=== PATIENT | female | born 1950 | race Caucasian/White ===

== ENCOUNTER 2019-04-01 09:10 | Inpatient (IN) | payer MEDICARE, BC ==
[2019-03-25 16:07] LABS: BASOPHILS # (AUTO) 0.1 X10'3 (0-0.2); BASOPHILS % (AUTO) 0.9 % (0-1); EOSINOPHILS # (AUTO) 0.2 X10'3 (0-0.9); EOSINOPHILS % (AUTO) 2.3 % (0-6); LYMPHOCYTES # (AUTO) 1.4 X10'3 (1.1-4.8); LYMPHOCYTES % (AUTO) 19.8 % (21-51); MEAN CORPUSCULAR HEMOGLOBIN 31.6 PG (27.0-31.0); MEAN CORPUSCULAR HGB CONC 33.9 g/dL (33.0-36.5); MEAN CORPUSCULAR VOLUME 93.1 FL (78-98); MEAN PLATELET VOLUME 9.1 FL (7.4-10.4); MONOCYTES # (AUTO) 0.6 X10'3 (0-0.9); MONOCYTES % (AUTO) 8.4 % (2-12); NEUTROPHILS # (AUTO) 4.8 X10'3 (1.8-7.7); NEUTROPHILS % (AUTO) 68.6 % (42-75); PRE OP HEMATOCRIT 39.3 % (35.0-45.0); PRE OP HEMOGLOBIN 13.3 g/dL (12.0-16.0); PRE OP PLATELET COUNT 292 X10'3 (140-440); RED BLOOD COUNT 4.22 X10'6 (4.20-5.60); RED CELL DISTRIBUTION WIDTH 13.2 % (11.5-14.5)
[2019-03-25 16:21] LABS: PRE OP PROTIME 10.4 SECONDS (9.0-12.0)
[2019-03-25 16:24] LABS: ALBUMIN 3.6 G/DL (3.4-5.0); ALBUMIN/GLOBULIN RATIO 0.9 (1.1-1.5); ALKALINE PHOSPHATASE 157 IU/L (46-116); BLOOD UREA NITROGEN 19 MG/DL (7-18); BUN/CREATININE RATIO 19.4 (6.6-38.0); CALCIUM 9.2 MG/DL (8.5-10.1); CHLORIDE 104 MMOL/L (99-107); CREATININE 0.98 MG/DL (0.40-0.90); PRE OP ALT 26 U/L (30-65); PRE OP ANION GAP 6 (8-16); PRE OP AST 17 U/L (10-37); PRE OP BILIRUB, TOTAL 0.3 MG/DL (0.0-1.0); PRE OP GLUCOSE 94 MG/DL (70-104); PRE OP POTASSIUM 3.5 MMOL/L (3.4-5.1); PRE OP SODIUM 141 MMOL/L (135-145); TOTAL CARBON DIOXIDE 30.7 MMOL/L (24-32); TOTAL PROTEIN 7.7 G/DL (6.4-8.2); eGFR 56 ML/MIN
[2019-04-01] VITALS (17 sets, daily range): BP systolic 106–133; BP diastolic 58–80
[~2019-04-01] VITALS: Ht 170.2 cm; Wt 84.0 kg
[~2019-04-01 09:10] MED LIST: ASPI-128 PO; BUTA1TAB54 PO; HYDROmorphone 1 mg/ml syringe IV PRN; HYDROmorphone inj. 0.5 MG/0.5 ML DISP.SYRIN IV PRN; LACT1CAP65 PO; LOSA25TA41 PO; RIZA10TA27 PO; acetaminophen 325mg tablet PO ONE; acetaminophen 325mg tablet PO PRN; aspirin 325mg tablet PO SCH; bisacodyl 10mg suppository rectal RC PRN; celeCOXIB 100mg capsule PO ONE; clindamycin-Cleocin 900mg/D5W 50 ML IV ONE; diphenhydrAMINE 25mg capsule PO PRN; famotidine 20mg tablet PO ONE; gabapentin 300mg capsule PO ONE; magnesium hydroxide 30ml (MOM) UD suspension PO PRN; metoclopramide 5 mg/ml inj IV ONE; ondansetron/PF 4mg/2ml inj IV PRN; oxyCODONE SR 10mg (sust. release) tab -2 tabs (20mg) PO ONE; ringers solution, lacted 1,000 ML IV ONE; tranexamic acid inj. 1,000 MG in normal saline 100 ML IV ONE; vancomycin inj 1,500 MG in normal saline 300ml IV soln IV ONE
[2019-04-01] MEDS ORDERED: ketorolac trometh. 30mg/ml inj. ONE (10:39)
[2019-04-01] MEDS ORDERED: ROPIVAcaine 0.5% (5mg/ml) 30ml vial ONE ×2 (10:39→12:20)
[2019-04-01] MEDS ORDERED: cloNIDine hcl/PF 100mcg/ml inj ONE (10:39)
[2019-04-01] MEDS ORDERED: epiNEPHrine 1 mg/ml inj ONE (10:39)
[2019-04-01] MEDS ORDERED: vancomycin 1,000mg inj ONE (10:39)
[2019-04-01] MEDS ORDERED: tetracaine 1% (10mg/ml) pres. free inj. ONE (11:11)
[2019-04-01] MEDS ORDERED: MIDAZolam 5mg/5ml vial ONE (11:14)
[2019-04-01] MEDS ORDERED: fentaNYL/PF 50MCG/1 ML 2ML syringe ONE (11:14)
[2019-04-01] MEDS ORDERED: ringers solution, lacted 1,000 ML IV SCH (11:56)
[2019-04-01] MEDS ORDERED: proCHLORperazine 10 MG/2 ml inj IV PRN (12:00)
[2019-04-01] MEDS ORDERED: morphine 4 MG/ML inj SYRINge IV PRN ×2 (12:00)
[2019-04-01] MEDS ORDERED: meperidine/PF 25mg/ml syringe IV PRN ×3 (12:00)
[2019-04-01] MEDS ORDERED: ondansetron/PF 4mg/2ml inj IV PRN (12:00)
[2019-04-01] MEDS ORDERED: propofol inj 20 ML IV ONE (12:20)
--- NOTE | 2019-04-01 13:20 | NUR ---
Received from OR via BED , accompanied by Anesthesiologist DR ryder and report given by Anesthesiolgist. PATIENT WAKING UP, DENIES PAIN, V/S WNL, NEUROVASCULAR CHECKS INTACT, 18G PIV LUE , pola DRESSING TO left KNEE CDI W/ COLD POWDER PACK AND W/ SCD ON. F/C DRAINING CLEAR YELLOW URINE. SENSATION T-11 .
[2019-04-01] MEDS ORDERED: ondansetron/PF 4mg/2ml inj ONE (13:46)
--- NOTE | 2019-04-01 14:20 | NUR ---
PATIENT a&ox4, DENIES PAIN, V/S WNL, NEUROVASCULAR CHECKS INTACT, 18G PIV LUE , pola DRESSING TO left KNEE CDI W/ COLD POWDER PACK AND W/ SCD ON. F/C DRAINING CLEAR YELLOW URINE. SENSATION T-12, PATIENT TAKEN TO ortho WITH ALL BELONGINGS AND HOOKED UP TO MONITORS IN ROOM AND REPORT GIVEN TO FORKLIFT DRIVER WHO HAS TAKEN OVER PATIENT CARE.
[2019-04-01] MEDS: potassium cl 20mEq in 1/2 NS 1,000 ML IV SCH ×3 (14:33→21:40)
[2019-04-01] MEDS: losartan 25mg tablet PO SCH (14:34)
[2019-04-01] MEDS: multivitamins, therapeutics tablet PO SCH (14:35)
[2019-04-01] MEDS: gabapentin 300mg capsule PO SCH ×3 (14:35→20:27)
[2019-04-01] MEDS: ascorbic acid 500mg tablet PO SCH ×2 (14:35→20:00)
[2019-04-01] MEDS ORDERED: scopolamine 1.5mg patch.TD72 TD ONE (14:40)
[2019-04-01] MEDS: ROPIVAcaine 0.2%/PF PUMP/bolus 400 ML ADDCANAL SCH ×2 (15:12→21:49)
[2019-04-01] MEDS: metoclopramide 5 mg/ml inj IV PRN ×2 (15:12→23:11)
[2019-04-01] MEDS: CLINDAMYCIN/D5W 900mg/50ml 50 ML IV SCH (15:49)
[2019-04-01] MEDS: oxyCODONE/APAP 10/325mg tablet PO PRN ×2 (16:15→23:11)
[2019-04-01] MEDS ORDERED: tranexamic acid inj. 900 MG in normal saline 100ml IV soln 100 ML IV ONE (18:00)
--- NOTE | 2019-04-01 18:11 | NUR ---
Problems reprioritized. Patient report given, questions answered & plan of care reviewed with Rosalinda HARDWICK.
--- NOTE | 2019-04-01 18:15 | NUR ---
Received report from RONEN Rodriguez. Assumed patient care.
[2019-04-01] MEDS: sennosides 8.6mg tablet PO SCH (20:32)
[2019-04-02] MEDS: CLINDAMYCIN/D5W 900mg/50ml 50 ML IV SCH (00:31)
[2019-04-02 02:00] VITALS: BP 115/67
[2019-04-02] MEDS: oxyCODONE/APAP 10/325mg tablet PO PRN ×5 (03:55→20:17)
[2019-04-02 06:05] LABS: BASOPHILS % (AUTO) 0.7 % (0-1); EOSINOPHILS # (AUTO) 0.1 X10'3 (0-0.9); EOSINOPHILS % (AUTO) 1.5 % (0-6); HEMATOCRIT 29.8 % (35.0-45.0); HEMOGLOBIN 10.2 g/dl (12.0-16.0); LYMPHOCYTES # (AUTO) 0.9 X10'3 (1.1-4.8); LYMPHOCYTES % (AUTO) 17.2 % (21-51); MEAN CORPUSCULAR HEMOGLOBIN 31.5 PG (27.0-31.0); MEAN CORPUSCULAR HGB CONC 34.3 g/dL (33.0-36.5); MEAN PLATELET VOLUME 8.3 FL (7.4-10.4); MONOCYTES # (AUTO) 0.7 X10'3 (0-0.9); MONOCYTES % (AUTO) 13.2 % (2-12); NEUTROPHILS # (AUTO) 3.4 X10'3 (1.8-7.7); NEUTROPHILS % (AUTO) 67.4 % (42-75); PLATELET COUNT 229 X10'3 (140-440); RED BLOOD COUNT 3.24 X10'6 (4.20-5.60); RED CELL DISTRIBUTION WIDTH 13.1 % (11.5-14.5); WHITE BLOOD COUNT 5.1 X10'3 (4.5-11.0)
--- NOTE | 2019-04-02 06:22 | NUR ---
Patient report given, questions answered and plan of care reviewed with RONEN Rodriguez.
[2019-04-02 06:23] LABS: ANION GAP 5 (8-16); CHLORIDE 103 MMOL/L (99-107); POTASSIUM 3.7 MMOL/L (3.5-5.1); SODIUM 137 MMOL/L (135-145); TOTAL CARBON DIOXIDE 28.6 MMOL/L (24-32)
[2019-04-02 06:31] VITALS: BP 120/68
--- NOTE | 2019-04-02 06:53 | NUR ---
Patient in room ORTHO 4021. I have received report from france HARDWICK and had the opportunity to ask questions and assume patient care.
[2019-04-02] MEDS: metoclopramide 5 mg/ml inj IV PRN ×2 (07:20→13:32)
[2019-04-02] MEDS: enoxaparin 40mg/0.4ml syringe SUBCUT SCH (07:20)
[2019-04-02] MEDS: losartan 25mg tablet PO SCH (07:21)
[2019-04-02] MEDS: gabapentin 300mg capsule PO SCH ×3 (07:21→20:17)
[2019-04-02] MEDS: potassium cl 20mEq in 1/2 NS 1,000 ML IV SCH ×3 (07:29→22:39)
[2019-04-02] MEDS: multivitamins, therapeutics tablet PO SCH (07:31)
[2019-04-02] MEDS: ascorbic acid 500mg tablet PO SCH ×2 (07:31→20:17)
[2019-04-02 10:00] VITALS: BP 132/69
[2019-04-02 14:00] VITALS: BP 136/46
--- NOTE | 2019-04-02 16:05 | NUR ---
Joint replacement: Pt s/p left knee arthroplasty seen at bedside provided with written and verbal protein education. Pt reports low appetite since surgery and agrees to regular yogurt TID, d/w dietary. Pt requests no strawberry flavor and no chocolate, d/w dietary. Pt reports LBM 04/01 and denies any constipation/diarrhea or difficulty chewing/swallowing. RD contact information provided. Will continue to follow. Addendum: 04/02/19 at [address] Amended: Links added.
[2019-04-02 18:00] VITALS: BP 119/56
--- NOTE | 2019-04-02 18:11 | NUR ---
Problems reprioritized. Patient report given, questions answered & plan of care reviewed with Kim Walton RN.
[2019-04-02] MEDS: sennosides 8.6mg tablet PO SCH (20:17)
[2019-04-02] MEDS: celeCOXIB 100mg capsule PO SCH (20:17)
[2019-04-02 22:00] VITALS: BP 120/63
[2019-04-03] MEDS: oxyCODONE/APAP 10/325mg tablet PO PRN ×3 (00:31→09:01)
[2019-04-03 06:00] VITALS: BP 139/71
--- NOTE | 2019-04-03 06:20 | NUR ---
Report given to Fan HARDWICK.
--- NOTE | 2019-04-03 06:27 | NUR ---
Patient in room ORTHO 4021. I have received report from Kim HARDWICK and had the opportunity to ask questions and assume patient care.
[2019-04-03 06:37] LABS: BASOPHILS % (AUTO) 0.4 % (0-1); EOSINOPHILS # (AUTO) 0.1 X10'3 (0-0.9); EOSINOPHILS % (AUTO) 1.2 % (0-6); HEMATOCRIT 28.8 % (35.0-45.0); LYMPHOCYTES # (AUTO) 0.4 X10'3 (1.1-4.8); LYMPHOCYTES % (AUTO) 5.6 % (21-51); MEAN CORPUSCULAR HEMOGLOBIN 31.9 PG (27.0-31.0); MEAN CORPUSCULAR HGB CONC 34.6 g/dL (33.0-36.5); MEAN CORPUSCULAR VOLUME 92.2 FL (78-98); MEAN PLATELET VOLUME 8.6 FL (7.4-10.4); MONOCYTES # (AUTO) 0.8 X10'3 (0-0.9); MONOCYTES % (AUTO) 12.1 % (2-12); NEUTROPHILS # (AUTO) 5.2 X10'3 (1.8-7.7); NEUTROPHILS % (AUTO) 80.7 % (42-75); PLATELET COUNT 206 X10'3 (140-440); RED BLOOD COUNT 3.12 X10'6 (4.20-5.60); RED CELL DISTRIBUTION WIDTH 13.3 % (11.5-14.5); WHITE BLOOD COUNT 6.4 X10'3 (4.5-11.0)
[2019-04-03] MEDS: losartan 25mg tablet PO SCH (07:01)
[2019-04-03] MEDS: multivitamins, therapeutics tablet PO SCH (07:01)
[2019-04-03] MEDS: ascorbic acid 500mg tablet PO SCH (07:01)
[2019-04-03] MEDS: celeCOXIB 100mg capsule PO SCH (07:01)
[2019-04-03] MEDS: gabapentin 300mg capsule PO SCH (07:02)
[2019-04-03] MEDS: enoxaparin 40mg/0.4ml syringe SUBCUT SCH (07:02)
[2019-04-03] MEDS: ROPIVAcaine 0.2%/PF PUMP/bolus 400 ML ADDCANAL SCH (08:32)
[2019-04-03 10:00] VITALS: BP 122/69
--- NOTE | 2019-04-03 10:50 | NUR ---
Safe DC. with spouse. all personal items with patient.
== END 2019-04-03 11:00 | disposition home or self-care (01) | DRG 470 ==
LOC: PAS 09:10 → EDSTATUS 11:45 → ORTHO 4S 14:39
PROVIDERS: ADMIT Orthopaedic Surgery; ATTEND Orthopaedic Surgery
PROC: 3E0T3BZ Introduction of Anesthetic Agent into Peripheral Nerves and Plexi, Percutaneous Approach (ICD-10-PCS; 2019-04-01)
PROC: 0SRD069 Replacement of Left Knee Joint with Oxidized Zirconium on Polyethylene Synthetic Substitute, Cemented, Open Approach (ICD-10-PCS; principal; 2019-04-01 11:08)
DX: M17.12 Unilateral primary osteoarthritis, left knee (principal); D62 Acute posthemorrhagic anemia; Z96.651 Presence of right artificial knee joint; E78.5 Hyperlipidemia, unspecified; I10 Essential (primary) hypertension; G43.909 Migraine, unspecified, not intractable, without status migrainosus; Z88.5 Allergy status to narcotic agent; Z88.0 Allergy status to penicillin; Z88.8 Allergy status to other drugs, medicaments and biological substances; Z98.42 Cataract extraction status, left eye; Z98.41 Cataract extraction status, right eye; Z90.710 Acquired absence of both cervix and uterus; Z82.49 Family history of ischemic heart disease and other diseases of the circulatory system; Z80.9 Family history of malignant neoplasm, unspecified; Z82.61 Family history of arthritis; Z72.89 Other problems related to lifestyle; Z86.718 Personal history of other venous thrombosis and embolism; Z79.899 Other long term (current) drug therapy; Z79.82 Long term (current) use of aspirin
CPT/HCPCS: 36415; 71046; 73560; 80051; 80053; 82948; 85025; 85610; 85730; 86885; 86900; 86901; 87081; 97110; 97116; 97162; 97530; A4215; A6454; A7000; C1713; C1758; C1776; G0378; J0171; J0735; J1650; J1885; J2250; J2405; J2704; J2765; J2795; J3010; J3370; J3480; J3490; J7120; Q0163

== ENCOUNTER 2021-08-15 06:56 | Observation (INO) | payer BC, MEDICARE ==
[2021-08-10 10:43] LABS: BASOPHILS # (AUTO) 0.1 X10'3 (0-0.2); BASOPHILS % (AUTO) 0.6 % (0-1); EOSINOPHILS # (AUTO) 0.1 X10'3 (0-0.9); EOSINOPHILS % (AUTO) 0.6 % (0-6); LYMPHOCYTES # (AUTO) 1.2 X10'3 (1.1-4.8); LYMPHOCYTES % (AUTO) 12.5 % (21-51); MEAN CORPUSCULAR HGB CONC 33.5 g/dL (33.0-36.5); MEAN CORPUSCULAR VOLUME 92.4 FL (78-98); MEAN PLATELET VOLUME 8.4 FL (7.4-10.4); MONOCYTES # (AUTO) 0.7 X10'3 (0-0.9); MONOCYTES % (AUTO) 6.6 % (2-12); NEUTROPHILS # (AUTO) 7.9 X10'3 (1.8-7.7); NEUTROPHILS % (AUTO) 79.7 % (42-75); PRE OP HEMOGLOBIN 14.1 g/dL (12.0-16.0); PRE OP PLATELET COUNT 273 X10'3 (140-440); RED BLOOD COUNT 4.55 X10'6 (4.20-5.60)
[2021-08-10 10:57] LABS: ALBUMIN 3.9 G/DL (3.4-5.0); ALKALINE PHOSPHATASE 132 IU/L (46-116); BLOOD UREA NITROGEN 17 MG/DL (7-18); BUN/CREATININE RATIO 22.1 (6.6-38.0); CALCIUM 9.2 MG/DL (8.5-10.1); CHLORIDE 106 MMOL/L (99-107); CREATININE 0.77 MG/DL (0.40-0.90); PRE OP ALT 33 U/L (30-65); PRE OP ANION GAP 6 (8-16); PRE OP AST 24 U/L (10-37); PRE OP BILIRUB, TOTAL 0.5 MG/DL (0.0-1.0); PRE OP GLUCOSE 114 MG/DL (70-104); PRE OP SODIUM 140 MMOL/L (135-145); TOTAL CARBON DIOXIDE 28.1 MMOL/L (24-32); TOTAL PROTEIN 7.9 G/DL (6.4-8.2); eGFR 73 ML/MIN
[2021-08-15] VITALS (26 sets, daily range): BP systolic 87–157; BP diastolic 51–94
[~2021-08-15] VITALS: Ht 170.2 cm; Wt 87.1 kg
[~2021-08-15 06:56] MED LIST changes: +CALC500T11 PO; +EPIN0.1521 IM; +FLUT16SP2 BOTHNARES; -HYDROmorphone 1 mg/ml syringe IV PRN; -HYDROmorphone inj. 0.5 MG/0.5 ML DISP.SYRIN IV PRN; -LACT1CAP65 PO; +MENT118G TOP; -acetaminophen 325mg tablet PO ONE; -acetaminophen 325mg tablet PO PRN; -aspirin 325mg tablet PO SCH; -bisacodyl 10mg suppository rectal RC PRN; +cefazolin/dext.iso 2gm/50ml IV ONE; -celeCOXIB 100mg capsule PO ONE; -clindamycin-Cleocin 900mg/D5W 50 ML IV ONE; -diphenhydrAMINE 25mg capsule PO PRN; -gabapentin 300mg capsule PO ONE; -magnesium hydroxide 30ml (MOM) UD suspension PO PRN; -metoclopramide 5 mg/ml inj IV ONE; -ondansetron/PF 4mg/2ml inj IV PRN; -oxyCODONE SR 10mg (sust. release) tab -2 tabs (20mg) PO ONE; -ringers solution, lacted 1,000 ML IV ONE; +ringers solution, lacted 1,000 ML IV SCH; -tranexamic acid inj. 1,000 MG in normal saline 100 ML IV ONE; +vancomycin 1,500 MG in NS 300ml IV soln IV ONE; -vancomycin inj 1,500 MG in normal saline 300ml IV soln IV ONE
--- NOTE | 2021-08-15 09:37 | NUR ---
CEFAZOLIN WAS NOT SENT TO THE OR AND NOT GIVEN DUE TO PT ALLERGY.
[2021-08-15] MEDS ORDERED: clindamycin-Cleocin 900mg/D5W 50 ML IV ONE (09:40)
[2021-08-15] MEDS ORDERED: midazolam 1 mg/ML 2ml injection ONE (10:17)
[2021-08-15] MEDS ORDERED: FENTANYL CITRATE/PF 50 MCG/1 ML VIAL ONE ×2 (10:17→12:06)
[2021-08-15] MEDS ORDERED: scopolamine 1mg/72 hr patch TD ONE ×2 (10:23→10:30)
[2021-08-15] MEDS ORDERED: scopolamine 1.5mg patch.TD72 (72-hour patch) TD ONE (10:25)
[2021-08-15] MEDS ORDERED: ROPIVAcaine 0.5% (5mg/ml) 30ml vial ONE ×2 (10:59→11:35)
[2021-08-15] MEDS ORDERED: ondansetron/PF 4mg/2ml inj ONE (11:00)
[2021-08-15] MEDS ORDERED: propofol inj 20 ML IV ONE (11:00)
[2021-08-15] MEDS ORDERED: sevoflurane 250ml liquid IH ONE (11:00)
[2021-08-15] MEDS ORDERED: dexamethasone sod phosphate 4mg/ml inj. ONE (11:00)
[2021-08-15] MEDS ORDERED: acetaminophen 1000 MG/100ml vial IV ONE (11:00)
[2021-08-15] MEDS ORDERED: ondansetron/PF 4mg/2ml inj IV PRN ×2 (11:10→13:15)
[2021-08-15] MEDS ORDERED: HYDROmorphone/PF 0.2 MG/ML SYRINGE IV PRN (11:10)
[2021-08-15] MEDS ORDERED: ROPIVAcaine 0.2%/PF PUMP/bolus 545 ML INTERSCALE SCH (11:10)
[2021-08-15] MEDS ORDERED: ringers solution, lacted 1,000 ML IV SCH (11:10)
[2021-08-15] MEDS ORDERED: morphine 2 MG/ML inj. syringe IV PRN (11:10)
[2021-08-15] MEDS ORDERED: ROPIVAcaine 0.2% (10 MG/5 ML) BOLUS INJECTION INTERSCALE PRN (11:10)
[2021-08-15] MEDS ORDERED: ketorolac trometh. 30mg/ml inj. ONE (11:35)
[2021-08-15] MEDS ORDERED: ePHEDrine 50MG/ML INJ. ONE (12:55)
--- NOTE | 2021-08-15 13:04 | NUR ---
Received from OR via HOSPITAL BED, accompanied by Anesthesiologist DR JONES and report given by Anesthesiolgist. PT PRESENTS WITH PIV 18G RIGHT AC, LEFT SHOULDER WRAP WITH POWDER PACK WITH ON-Q READY. VSS. Addendum: 08/15/21 at 1330 by Sunshine King RN, RN Amended: Links added.
[2021-08-15] MEDS ORDERED: HYDROmorphone inj. 0.5 MG/0.5 ML DISP.SYRIN IV PRN (13:15)
[2021-08-15] MEDS ORDERED: diphenhydrAMINE 25mg capsule PO PRN ×2 (13:15)
[2021-08-15] MEDS ORDERED: magnesium hydroxide 30ml (MOM) UD suspension PO PRN (13:15)
[2021-08-15] MEDS ORDERED: oxyCODONE IR 5mg (immed. release) tablet PO PRN ×2 (13:15)
[2021-08-15] MEDS ORDERED: butalbital/acetaminophen/caffeine (Fioricet) tablet PO PRN (13:15)
[2021-08-15] MEDS ORDERED: bisacodyl 10mg suppository rectal RC PRN (13:15)
[2021-08-15] MEDS ORDERED: HYDROmorphone 1 mg/ml syringe IV PRN (13:15)
[2021-08-15] MEDS ORDERED: acetaminophen 325mg tablet PO PRN (13:15)
[2021-08-15] MEDS ORDERED: EPINEPHRINE IM SCH (13:15)
[2021-08-15] MEDS ORDERED: fluticasone nasal spray 16GM bottle NS PRN (13:50)
[2021-08-15] MEDS ORDERED: proCHLORperazine 10 MG/2 ml inj IV PRN (13:50)
[2021-08-15] MEDS ORDERED: MENTHOL TOP SCH (14:00)
--- NOTE | 2021-08-15 14:07 | NUR ---
PT SITTING UP IN BED EATING ICE CHIPS.
--- NOTE | 2021-08-15 14:24 | NUR ---
Report called to receiving nurse DREA HARDWICK. Transferred via HOSPITAL BED BY OR TECHS TO ROOM 360A. Belongings WENT WITH PT TP ROOM 360A, 1 PT BELONGING BAG AND 1 PERSONAL BAG. Special Issues communicated to receiving nurse. Addendum: 08/15/21 at 1433 by Sunshine King RN RN Amended: Links added.
[2021-08-15] MEDS ORDERED: calcium carbonate 500mg chew tablet PO PRN (16:00)
[2021-08-15] MEDS: clindamycin 600mg/D5W 50ml 50 ML IV SCH ×2 (17:19→19:33)
[2021-08-15] MEDS: acetaminophen 325mg tablet PO SCH ×2 (17:20→22:29)
--- NOTE | 2021-08-15 18:50 | NUR ---
Patient in room [facility] 360. I have received report from RONEN LIRA and had the opportunity to ask questions and assume patient care. Addendum: 08/15/21 at 1850 by Brittany Suarez RN Amended: Links added.
--- NOTE | 2021-08-15 18:58 | NUR ---
Problems reprioritized. Patient report given, questions answered & plan of care reviewed with RONEN GOOD.
[2021-08-15] MEDS ORDERED: vancomycin/NS 1 GM ADD-VANTAGE 250 ML IV SCH (20:00)
[2021-08-15] MEDS ORDERED: sennosides 8.6mg tablet PO SCH (21:00)
[2021-08-15] MEDS: potassium cl 20mEq in 1/2 NS 1,000 ML IV SCH (21:15)
--- NOTE | 2021-08-15 22:35 | NUR ---
pt up with assistance to ambulate in the patel x1 one lap 300ft tolerated well. no s&s of distress at this time.
[2021-08-16] VITALS: BP 115/59
--- NOTE | 2021-08-16 01:11 | NUR ---
resting without changes, left arm in sling has cool pack to the shoulder.
--- NOTE | 2021-08-16 01:30 | NUR ---
pt awoke up with assist to brp tolerated well. pt sat edge of bed c/o pain from strap tightness around the arm at the arm pit. pt stated it felt much better after the adjustment. cold pack on the shoulder. pt assisted in repositioning to comfort in bed and tolerated well.
[2021-08-16] MEDS: potassium cl 20mEq in 1/2 NS 1,000 ML IV SCH ×2 (03:27→05:15)
[2021-08-16] MEDS: acetaminophen 325mg tablet PO SCH ×2 (03:28→08:47)
--- NOTE | 2021-08-16 03:52 | NUR ---
medicated with tylenol for pain using q ball twice now for pain. assisted up to brp to void. tolerated well scd'd back on new ice pack to left shoulder given and no complaints at this time.
[2021-08-16 04:00] VITALS: BP 102/55
[2021-08-16 06:03] LABS: BASOPHILS % (AUTO) 0.4 % (0-1); EOSINOPHILS % (AUTO) 0.3 % (0-6); HEMATOCRIT 32.4 % (35.0-45.0); HEMOGLOBIN 10.8 g/dl (12.0-16.0); LYMPHOCYTES % (AUTO) 12.9 % (21-51); MEAN CORPUSCULAR HEMOGLOBIN 30.9 PG (27.0-31.0); MEAN CORPUSCULAR HGB CONC 33.3 g/dL (33.0-36.5); MEAN CORPUSCULAR VOLUME 92.7 FL (78-98); MEAN PLATELET VOLUME 8.9 FL (7.4-10.4); MONOCYTES % (AUTO) 12.2 % (2-12); NEUTROPHILS % (AUTO) 74.2 % (42-75); PLATELET COUNT 214 X10'3 (140-440); RED BLOOD COUNT 3.49 X10'6 (4.20-5.60); RED CELL DISTRIBUTION WIDTH 14.2 % (11.5-14.5); WHITE BLOOD COUNT 8.1 X10'3 (4.5-11.0)
[2021-08-16 06:18] LABS: ANION GAP 6 (8-16); CHLORIDE 106 MMOL/L (99-107); POTASSIUM 4.3 MMOL/L (3.5-5.1); SODIUM 139 MMOL/L (135-145); TOTAL CARBON DIOXIDE 26.8 MMOL/L (24-32)
--- NOTE | 2021-08-16 06:19 | NUR ---
Problems reprioritized. Patient report given, questions answered & plan of care reviewed with RONEN LIRA. Addendum: 08/16/21 at 0619 by Brittany Suarez RN Amended: Links added.
--- NOTE | 2021-08-16 06:20 | NUR ---
Problems reprioritized. Patient report given, questions answered & plan of care reviewed with RONEN LIRA. Addendum: 08/16/21 at 0621 by Brittany Suarez RN Amended: Links added.
--- NOTE | 2021-08-16 06:54 | NUR ---
Patient in room [facility] 359A. I have received report from RONEN GOOD and had the opportunity to ask questions and assume patient care.
[2021-08-16] MEDS ORDERED: losartan 25mg tablet PO SCH (08:00)
[2021-08-16] MEDS ORDERED: aspirin 325mg tablet PO SCH (08:30)
[2021-08-16 08:58] VITALS: BP 115/64
--- NOTE | 2021-08-16 10:42 | NUR ---
Pt s/p arthroplasty R shoulder per EMR. dietetic intern provided pt w/ written and verbal high protein diet education w/ RD contact information at bedside. Will continue to follow. Addendum: 08/16/21 at 1042 by Jasmin King [address] Amended: Links added. Addendum: 08/16/21 at [address] I have reviewed assessment by recording studio intern
[2021-08-16 12:03] VITALS: BP 120/60
--- NOTE | 2021-08-16 12:23 | NUR ---
PATIENT STABLE AND APPROPRIATE FOR DISCHARGE, IV REMOVED, EDUCATION GIVEN, FOLLOW UP APPOINTMENT AND NEW MEDS PREARRANGED IN PREOP APPT,PATIENT SENT HOME WITH ON-Q PUMP BALL WAS FULL, ALL BELONGINGS SENT WITH PATIENT, PATIENT TAKEN TO LOBBY BY WHEELCHAIR TO AN AWAITING CAR WHERE WILL TAKE PATIENT HOME
[2021-08-17] MEDS ORDERED: acetaminophen 325mg tablet PO PRN (13:15)
== END 2021-08-16 12:24 | disposition home or self-care (01) ==
LOC: PAS 06:56 → SUR 3N 14:35
PROVIDERS: ADMIT Orthopaedic Surgery; ATTEND Orthopaedic Surgery
DX: M19.012 Primary osteoarthritis, left shoulder (principal); Z20.822 Contact with and (suspected) exposure to COVID-19; M75.102 Unspecified rotator cuff tear or rupture of left shoulder, not specified as traumatic; M65.812 Other synovitis and tenosynovitis, left shoulder; M62.81 Muscle weakness (generalized); D62 Acute posthemorrhagic anemia; I10 Essential (primary) hypertension; G43.909 Migraine, unspecified, not intractable, without status migrainosus; Z88.0 Allergy status to penicillin; Z79.899 Other long term (current) drug therapy
CPT/HCPCS: 23472; 29828; 36415; 80051; 80053; 82948; 85025; 87081; 96365; 96366; 96367; 96375; 97110; 97161; 97530; C1776; G0378; J0131; J0780; J1100; J1885; J2250; J2405; J2704; J2795; J3010; J3370; J3480; J3490; J7040; J7120; U0003; U0005; A4565; A4618; A7000

== ENCOUNTER 2023-04-03 06:05 | Observation (INO) | payer MEDICARE ==
[2023-03-30 16:08] LABS: BASOPHILS # (AUTO) 0.1 X10'3 (0-0.2); EOSINOPHILS # (AUTO) 0.2 X10'3 (0-0.9); EOSINOPHILS % (AUTO) 2.5 % (0-6); LYMPHOCYTES # (AUTO) 1.5 X10'3 (1.1-4.8); LYMPHOCYTES % (AUTO) 23.2 % (21-51); MEAN CORPUSCULAR HEMOGLOBIN 30.6 PG (27.0-31.0); MEAN CORPUSCULAR HGB CONC 32.7 g/dL (33.0-36.5); MEAN CORPUSCULAR VOLUME 93.4 FL (78-98); MEAN PLATELET VOLUME 8.6 FL (7.4-10.4); MONOCYTES # (AUTO) 0.6 X10'3 (0-0.9); MONOCYTES % (AUTO) 9.4 % (2-12); NEUTROPHILS # (AUTO) 4.1 X10'3 (1.8-7.7); NEUTROPHILS % (AUTO) 63.9 % (42-75); PRE OP HEMATOCRIT 41.3 % (35.0-45.0); PRE OP HEMOGLOBIN 13.5 g/dL (12.0-16.0); PRE OP PLATELET COUNT 263 X10'3 (140-440); PRE OP WHITE BLOOD COUNT 6.4 10'3 (4.8-10.8); RED BLOOD COUNT 4.42 X10'6 (4.20-5.60); RED CELL DISTRIBUTION WIDTH 13.9 % (11.5-14.5)
[2023-03-30 16:15] LABS: BILIRUBIN,URINE NEGATIVE (Neg); CLARITY,URINE CLEAR (Clear); COLOR,URINE YELLOW (Yellow); GLUCOSE, URINE NEGATIVE (Neg); KETONES,URINE NEGATIVE (Neg); LEUKOCYTE ESTERASE ,URINE NEGATIVE (Neg); NITRITES, URINE NEGATIVE (Neg); OCCULT BLOOD,URINE TRACE-INTACT (Neg); PROTEIN,URINE NEGATIVE (Neg); UROBILINOGEN,URINE 0.2 E.U/dL (0.2-1.0)
[2023-03-30 16:23] LABS: PRE OP PROTIME 10.8 SECONDS (9.0-12.0)
[2023-03-30 16:26] LABS: UA COLLECTION TYPE NON-SPECIFIED
[2023-03-30 16:26] LABS: ALBUMIN 3.6 G/DL (3.4-5.0); ALKALINE PHOSPHATASE 128 IU/L (46-116); BLOOD UREA NITROGEN 23 MG/DL (7-18); BUN/CREATININE RATIO 28.4 (10.0-20.0); CALCIUM 9.5 MG/DL (8.5-10.1); CHLORIDE 103 MMOL/L (99-107); CREATININE 0.81 MG/DL (0.40-0.90); PRE OP ALT 23 U/L (30-65); PRE OP ANION GAP 6 (8-16); PRE OP AST 13 U/L (10-37); PRE OP BILIRUB, TOTAL 0.4 MG/DL (0.0-1.0); PRE OP GLUCOSE 97 MG/DL (70-104); PRE OP POTASSIUM 3.8 MMOL/L (3.4-5.1); PRE OP SODIUM 138 MMOL/L (135-145); TOTAL CARBON DIOXIDE 28.7 MMOL/L (24-32); TOTAL PROTEIN 7.1 G/DL (6.4-8.2); eGFR 69 ML/MIN
[2023-03-30 16:29] LABS: BACTERIA,URINE NONE SEEN /HPF (Neg); MUCUS STRANDS FEW /LPF (Neg); SQUAMOUS EPITHELIAL CELL,UR MODERATE /LPF (FEW); WBC,URINE 0-4 /HPF (0-4)
[~2023-04-03] VITALS: Ht 167.6 cm; Wt 88.5 kg
[2023-04-03] VITALS (34 sets, daily range): BP systolic 109–172; BP diastolic 64–107; PULSE 79–104; RESP 10–18; TEMP 98–98.2; O2SAT 90–98
[~2023-04-03 06:05] MED LIST changes: -CALC500T11 PO; -MENT118G TOP; +RIZA-5 PO; -RIZA10TA27 PO; -cefazolin/dext.iso 2gm/50ml IV ONE; +clindamycin-Cleocin 900mg/D5W 50 ML IV ONE; +tranexamic acid inj. 1,000 MG in normal saline IV soln 100ML IV ONE; -vancomycin 1,500 MG in NS 300ml IV soln IV ONE
[2023-04-03] MEDS ORDERED: vancomycin 1,000mg inj ONE (06:57)
[2023-04-03] MEDS ORDERED: methylene blue (5mg/ml) 50mg/10ml ampul IV ONE (06:57)
[2023-04-03] MEDS ORDERED: scopolamine 1MG/72H patch 1 PATCH PATCH.TD.3 TD ONE (07:11)
[2023-04-03] MEDS ORDERED: fentaNYL/PF 50MCG/1 ML 2ML syringe ONE ×2 (07:18→09:32)
[2023-04-03] MEDS ORDERED: ondansetron/PF 4mg/2ml inj ONE (07:18)
[2023-04-03] MEDS ORDERED: dexamethasone sod phosphate 4mg/ml inj. ONE (07:18)
[2023-04-03] MEDS ORDERED: propofol inj 20 ML IV ONE (07:19)
[2023-04-03] MEDS ORDERED: LIDOcaine 2% (20mg/ml) 5ml vial ONE (07:19)
[2023-04-03] MEDS ORDERED: ondansetron/PF 4mg/2ml inj IV PRN (07:25)
[2023-04-03] MEDS ORDERED: hydrALAZINE 20mg/ml inj. IV PRN (07:25)
[2023-04-03] MEDS ORDERED: labetalol 20mg/4ml (5mg/ml) syringe IV PRN (07:25)
[2023-04-03] MEDS ORDERED: ringers solution, lacted 1,000 ML IV SCH (07:25)
[2023-04-03] MEDS ORDERED: fentaNYL/PF 50MCG/1 ML 2ML syringe IV PRN ×2 (07:25)
[2023-04-03] MEDS ORDERED: morphine 2 MG/ML inj. syringe IV PRN (07:25)
[2023-04-03] MEDS ORDERED: morphine 4 MG/ML inj SYRINge IV PRN (07:25)
[2023-04-03] MEDS ORDERED: VANCOMYCIN 1,500MG in NS 300ml IVPB IV ONE (07:30)
[2023-04-03] MEDS ORDERED: desflurane 240ml liquid inh. IH ONE (07:31)
[2023-04-03] MEDS ORDERED: diphenhydrAMINE 25mg capsule PO PRN (07:35)
[2023-04-03] MEDS ORDERED: magnesium hydroxide 30ml (MOM) UD suspension PO PRN (07:35)
[2023-04-03] MEDS ORDERED: HYDROcodone/acetaminophen 10/325mg tab PO PRN (07:35)
[2023-04-03] MEDS ORDERED: potassium cl 20mEq in 1/2 NS 1,000 ML IV SCH (07:35)
[2023-04-03] MEDS ORDERED: naloxone 0.4 mg/ml inj IV PRN (07:35)
[2023-04-03] MEDS ORDERED: bisacodyl 10mg suppository rectal RC PRN (07:35)
[2023-04-03] MEDS ORDERED: acetaminophen 325mg tablet PO PRN (07:35)
[2023-04-03] MEDS ORDERED: ROPIVAcaine 0.5% (5mg/ml) 30ml vial ONE (07:42)
[2023-04-03] MEDS ORDERED: ePHEDrine 50MG/ML INJ. ONE (08:02)
[2023-04-03] MEDS ORDERED: acetaminophen 1,000mg/100ml IV 100 ML IV ONE (08:25)
--- NOTE | 2023-04-03 09:58 | NUR ---
Received from OR via BED, accompanied by Anesthesiologist YANIRA and report given by Anesthesiologist. GENE VINCENT EASILY. MONITOR SR. DENIES PAIN, BUT COMPLAINS OF SOME NAUSEA. MEDICATED. 20 G IV PATENT TO [place] DRESSING TO R SHOULDER D&I - ICE PACK TO SHOULDER. BREATHING EASILY W/ SAO2 98% W/ O2 AT 6 LPM PER MASK. Addendum: 04/03/23 at 1022 by Kosta Wan RN Amended: Links added.
[2023-04-03] MEDS ORDERED: proCHLORperazine 10 MG/2 ml inj IM STA (10:37)
--- NOTE | 2023-04-03 14:58 | NUR ---
PT NOW FULLY AWAKE, AFTER SOME INITIAL NAUSEA, TREATED W/ZOFRAN AND COMPAZINE SHE HAS BEEN W/OUT NAUSEA. STATES SHE HAS HX OF POST OP NAUSEA. MONITOR SR. VSS. IV PATENT TO LFA. AFTER A SHORT TRIAL OFF O2 SATS DROPPED TO 88%; REMAINED ON O2 3 LPM PER NC FOR REMAINER OF RR STAY. PT WAS UP TO BSC X2, VOIDED APPX 300, 200 ML RESPECTIVELY. REPORTS NO PAIN - SL NUMBNESS IN FINGERS OF R HAND. SLING IN PLACE AND ICE TO R SHOULDER. TRANSFERRED TO 4013 B W/ REPORT TO YONY HARDWICK. PROVIDED W/ CALL LIGHT, BED IN LOW POSITION. Addendum: 04/03/23 at 1528 by Kosta Wan RN Amended: Links added.
--- NOTE | 2023-04-03 15:25 | NUR ---
Pt in room w/ at bedside. Pt ambulated to bathroom to void, washed hands, and rtn'd' to bed w/ asst of aide. Pt w/o distress and denies any needs at this time.
[2023-04-03] MEDS: ondansetron/PF 4mg/2ml inj IV PRN (15:59)
--- NOTE | 2023-04-03 16:00 | NUR ---
Pt c/o nausea. Zofran given per orders. No emesis.
--- NOTE | 2023-04-03 18:30 | NUR ---
Patient report given, questions answered & plan of care reviewed with RONEN Burns.
--- NOTE | 2023-04-03 19:00 | NUR ---
Assumed care report from Love HARDWICK.
[2023-04-03] MEDS ORDERED: fluticasone nasal spray 16GM bottle NS PRN (19:20)
[2023-04-03] MEDS ORDERED: vancomycin/NS 1 GM ADD-VANTAGE 250 ML IV SCH (20:00)
[2023-04-03] MEDS ORDERED: losartan 50mg tablet PO SCH (21:00)
--- NOTE | 2023-04-03 22:00 | NUR ---
Noted surgery stop time 1008, pt was already recovered when arrived to floor.
[2023-04-04] MEDS: HYDROcodone/acetaminophen 10/325mg tab PO PRN ×4 (00:04→14:09)
[2023-04-04] MEDS: ondansetron/PF 4mg/2ml inj IV PRN ×2 (00:04→07:51)
[2023-04-04 02:00] VITALS: BP 120/64; PULSE 83; RESP 15; TEMP 98.8; O2SAT 96
[2023-04-04 06:00] VITALS: BP 106/53; PULSE 71; RESP 16; TEMP 97.9; O2SAT 92
--- NOTE | 2023-04-04 06:45 | NUR ---
Report to Love HARDWICK.
[2023-04-04 06:54] LABS: BASOPHILS % (AUTO) 0.3 % (0-1); EOSINOPHILS % (AUTO) 0.2 % (0-6); HEMATOCRIT 33.2 % (35.0-45.0); HEMOGLOBIN 11.2 g/dl (12.0-16.0); LYMPHOCYTES # (AUTO) 1.3 X10'3 (1.1-4.8); LYMPHOCYTES % (AUTO) 14.3 % (21-51); MEAN CORPUSCULAR HEMOGLOBIN 31.3 PG (27.0-31.0); MEAN CORPUSCULAR HGB CONC 33.8 g/dL (33.0-36.5); MEAN CORPUSCULAR VOLUME 92.7 FL (78-98); MEAN PLATELET VOLUME 8.8 FL (7.4-10.4); MONOCYTES # (AUTO) 1.3 X10'3 (0-0.9); MONOCYTES % (AUTO) 13.6 % (2-12); NEUTROPHILS # (AUTO) 6.7 X10'3 (1.8-7.7); NEUTROPHILS % (AUTO) 71.6 % (42-75); PLATELET COUNT 227 X10'3 (140-440); RED BLOOD COUNT 3.58 X10'6 (4.20-5.60); RED CELL DISTRIBUTION WIDTH 13.6 % (11.5-14.5); WHITE BLOOD COUNT 9.4 X10'3 (4.5-11.0)
[2023-04-04 07:18] LABS: ANION GAP 9 (8-16); CHLORIDE 103 MMOL/L (99-107); SODIUM 138 MMOL/L (135-145); TOTAL CARBON DIOXIDE 25.9 MMOL/L (24-32)
--- NOTE | 2023-04-04 08:00 | NUR ---
Dr White at bedside discussing dc'g w/ pt. stated pt to be DC'd home today and instructed her on activity limitations and f/u w/ PTx and him, etc.
--- NOTE | 2023-04-04 09:57 | NUR ---
Per EMR pt POD #1 s/p reverse right TSA. Written high protein education with ONS coupons and RD contact information mailed to patient's address found in EMR d/t short staffing. Will continue to follow and provide verbal education as able. Addendum: 04/04/23 at [address] Amended: Links added.
--- NOTE | 2023-04-04 10:23 | NUR ---
Patient consumed 0% of breakfast secondary to nausea. Encouraged patient to take small sips of water and bites of jello once tolerated. Addendum: 04/04/23 at 1024 by Eliza BAILON Amended: Links added.
[2023-04-04] MEDS ORDERED: proMETHazine 25mg tablet PO ONE ×2 (12:30→13:30)
[2023-04-04] MEDS ORDERED: calcium carbonate 500mg chew tablet PO SCH (12:30)
--- NOTE | 2023-04-04 12:30 | NUR ---
Pt received lunch and was readying herself to eat. Deepika Morris at bedside discussing plan for dc'g and f/u. Pt was concerned about her gluten free diet and the hospital food, and begun eating foods w/o possibility of gluten in it.
[2023-04-04 13:21] VITALS: RESP 18; O2SAT 93
[2023-04-04] MEDS ORDERED: PROM25TA14 PO (13:29)
[2023-04-04 13:33] VITALS: BP 99/51; PULSE 72; RESP 18; TEMP 99; O2SAT 93
[2023-04-04 15:30] VITALS: BP 124/61; PULSE 82; RESP 18; TEMP 98.3; O2SAT 93
[2023-04-04 15:45] VITALS: RESP 18
== END 2023-04-04 15:50 | disposition home or self-care (01) ==
LOC: PRE-OP 06:05 → ORTHO 4S 07:43
PROVIDERS: ADMIT Specialist; ATTEND Specialist
DX: M19.011 Primary osteoarthritis, right shoulder (principal); M75.21 Bicipital tendinitis, right shoulder; M75.111 Incomplete rotator cuff tear or rupture of right shoulder, not specified as traumatic; I10 Essential (primary) hypertension; G43.909 Migraine, unspecified, not intractable, without status migrainosus; J43.9 Emphysema, unspecified; E66.9 Obesity, unspecified; Z86.718 Personal history of other venous thrombosis and embolism; Z91.040 Latex allergy status; Z79.899 Other long term (current) drug therapy
CPT/HCPCS: 23430; 23472; 36415; 73030; 76000; 80051; 80053; 81001; 82948; 85025; 85610; 85730; 86885; 86900; 86901; 87081; 96361; 96365; 96372; 96375; 96376; 97110; 97161; 97530; C1776; G0378; J0131; J0780; J1100; J2405; J2704; J2795; J3010; J3370; J3480; J3490; J7040; J7120; Q0169; A4615; A4618; A6449; A6455; A7000; Q9968